=== PATIENT | female | born 1995 | race Caucasian/White ===

== ENCOUNTER 2022-03-05 12:14 | Emergency (ER) | payer OTHER, SELFPAY ==
--- NOTE | 2022-03-05 12:16 | ED.URI ---
HPI - URI/Sore Throat General Chief Complaint: Upper Respiratory Infection Stated Complaint: Ear and sinus infection Time Seen by Provider: 03/05/22 12:16 Source: patient Mode of arrival: ambulatory Limitations: no limitations History of Present Illness HPI Narrative: Rocio is a 26-year-old female patient presenting to the clinic today with complaints of possible sinus infection/ear pain times 1 week. She reports that she has had sinus pressure, sore throat, and right ear pain. She denies any known exposure to anybody with strep, COVID, or flu. She reports that she has had a fever highest of 102. Is having green/yellowish nasal discharge/sinus pressure MD elicited complaint: fever, sore throat, rhinorrhea, nasal congestion, sinus pain and other (Ear pain) Related Data Allergies Allergy/AdvReac Type Severity Reaction Status Date / Time latex Allergy Mild Rash Verified 03/05/22 12:31 ciprofloxacin Allergy Unknown Unknown Verified 03/05/22 12:30 Review of Systems Review of Systems: Pertinent positives per HPI. Patient denies any fever, chills, rash, headache, visual changes, dizziness, cough, shortness of breath, chest pain, palpitations, nausea, vomiting, diarrhea, constipation, abdominal pain, or any urinary issues. PMFSH Comments At the time of my signature, I reviewed and agree with the nursing past medical, surgical, social, and family history. There is no relevant family history pertinent to the patient complaint. Exam Narrative: General: Well-developed, well nourished, in no apparent distress Head: Normocephalic, atraumatic Eyes: Pupils equally round and reactive to light bilaterally, EOM intact, sclera and conjunctive clear, no discharge, lids normal Ears: Left TMs intact and clear, right TM red, intact, and bulging. Ear canals clear, no drainage, grossly hearing normal. Nose: Nares patent, yellow discharge, moderate inflammation with white striate, sinus tenderness over the maxillary sinuses Mouth: Oral pharynx without lesions or masses, good dentition, MMM. Oropharynx red Neck: Supple, trachea midline, no enlargement of anterior or posterior cervical nodes, no thyroid masses or goiter palpable. Cardio: Regular rate and rhythm, s1 and s2 normal, no murmur appreciated. Resp: Clear to auscultation bilaterally, no rhonchi, rales, wheezing or rubs Course Course Emergency Course: Portions of this record may have been created with voice recognition software. Level of Care: Express Care Visit Vital Signs Vital signs: Vital signs reviewed MDM - URI/Sore Throat MDM Narrative Medical decision making narrative: At the time of visit patient is resting comfortably on the exam table. She reports she has sinus pressure, green nasal drainage, sore throat, and right ear pain. The time of assessment patient appears to have a right sided ear infection and sinusitis. I will go ahead and treat her using a prescription for Augmentin. Supportive measures were discussed with the patient and she voiced understanding of discharge instructions. Differential Diagnosis Differential diagnosis: Likely upper respiratory infection, otitis media, sinusitis, viral infection, bronchitis, influenza, pharyngitis and other ( COVID) Discharge Plan Discharge Clinical Impression: Acute right otitis media Sinusitis Qualifiers: Sinusitis location: maxillary Chronicity: acute Recurrence: non-recurrent Qualified Code(s): J01.00 - Acute maxillary sinusitis, unspecified Patient Disposition: Home, Self-Care Condition: Stable Instructions: Antibiotic Form, Sinusitis (ED), Ear Infection (ED) Additional Instructions: Take prescription medications only as prescribed-Augmentin as prescribed Increase fluids and stay well hydrated Tylenol/motrin for pain/fever Flonase and OTC antihistamines as directed Vicks vapor rub to open sinuses Sinus rinses for congestion Cepacol spray, cough drops, throat lozenges, warm tea with stefanie
[2022-03-05 12:27] VITALS: BP 115/60; PULSE 89; RESP 16; TEMP 37.2; O2SAT 99
== END 2022-03-05 12:35 | disposition home or self-care (01) ==
LOC: EXPBETH 12:19
PROVIDERS: Emergency Provider Nurse Practitioner Family
DX: H66.91 Otitis media, unspecified, right ear (principal); J01.00 Acute maxillary sinusitis, unspecified; R11.15 Cyclical vomiting syndrome unrelated to migraine
CPT/HCPCS: 99213; G0463

== ENCOUNTER 2022-06-29 11:44 | Emergency (ER) | payer OTHER, SELFPAY ==
--- NOTE | 2022-06-29 11:48 | ED.URI ---
HPI - URI/Sore Throat General Chief Complaint: Upper Respiratory Infection Stated Complaint: ears coughing tightness in chest aches Time Seen by Provider: 06/29/22 11:48 Source: patient and RN notes reviewed History of Present Illness HPI Narrative: Patient is a 27-year-old female who presents the urgent care with complaints of bilateral ear pain, sneezing, cough, runny nose, fever. Patient states her symptoms have been ongoing for approximately 10 days. States her last temperature was 99 Fahrenheit. Patient states she is taken NyQuil for the last 2 nights. Denies any shortness of breath. Denies of any ill exposures. No other acute complaints. No acute distress noted. Patient aware of the plan of care. Some parts of this dictation were generated by voice recognition software and may contain typographical and/or grammatical inaccuracies. Related Data Allergies Allergy/AdvReac Type Severity Reaction Status Date / Time latex Allergy Mild Rash Verified 06/29/22 11:55 ciprofloxacin Allergy Unknown Unknown Verified 06/29/22 11:55 Review of Systems Review of Systems: CONSTITUTIONAL: Reports of chills and sweats EYES: Denies visual changes, redness, or discharge. ENT: Reports of rhinorrhea, intermittent congestion, postnasal drainage and bilateral otalgia CARDIOVASCULAR: Denies chest pain, palpitations, or edema. RESPIRATORY: Reports a mild cough without dyspnea GASTROINTESTINAL: Denies abdominal pain, nausea, vomiting, or diarrhea. GENITOURINARY: Denies dysuria or hematuria. SKIN: Denies rash or itching. MUSCULOSKELETAL: Denies back pain, joint pain, or myalgia. NEUROLOGIC: Denies headache, numbness, or weakness. All other systems reviewed are negative, except as documented in HPI. PMFSH Comments At the time of my signature, I reviewed and agree with the nursing past medical, surgical, social, and family history. There is no relevant family history pertinent to the patient complaint. Exam Narrative: GENERAL: This is a well-nourished, well-developed patient. Disheveled/poor hygiene HEAD: normocephalic, atraumatic. EYES: PERRL. Sclera clear/white. Vision is grossly intact. EARS: External ears normal, auditory canals clear and without drainage, TMs normal without perforation. Hearing grossly intact. NOSE: External nose normal with no obvious nasal discharge, nares without redness, clear rhinorrhea. THROAT: Mucous membranes moist, posterior pharynx clear. Moderate postnasal drainage NECK: Neck supple, non-tender without lymphadenopathy CARDIOVASCULAR: Regular rate and rhythm without murmurs, gallops, or rubs. RESPIRATORY: Clear to auscultation. Breath sounds equal bilaterally. No wheezes, rales, or rhonchi. SKIN: warm, intact with no suspicious lesions or rash, good texture and turgor. NEURO: awake, alert, and oriented to person, place and time. There were no obvious focal neurologic abnormalities. EXTREMITIES: No clubbing, cyanosis, or edema. Course Course Level of Care: Express Care Visit Vital Signs Vital signs: Vital Signs Temperature 98.9 F 06/29/22 11:50 Pulse Rate 99 06/29/22 11:50 Respiratory Rate 16 06/29/22 11:50 Blood Pressure 111/68 06/29/22 11:50 Pulse Oximetry 100 06/29/22 11:50 Oxygen Delivery Room Air 06/29/22 11:50 Temperature 98.9 F 06/29/22 11:50 Pulse Rate 99 06/29/22 11:50 Respiratory Rate 16 06/29/22 11:50 Blood Pressure 111/68 06/29/22 11:50 Pulse Oximetry 100 06/29/22 11:50 Oxygen Delivery Room Air 06/29/22 11:50 Reviewed MDM - URI/Sore Throat MDM Narrative Medical decision making narrative: Advised patient to take a daily antihistamine such as Zyrtec or Claritin and Benadryl prior to bedtime. Do not sleep with the windows open or a fan. Use a humidifier at night. Use Tylenol/ibuprofen as needed. Complete the oral steroid regimen as prescribed. Be sure to eat and drink with your medication. Follow-up with your PCP within 2 to 5 days or for worseni
[2022-06-29 11:50] VITALS: BP 111/68; PULSE 99; RESP 16; TEMP 37.2; O2SAT 100
== END 2022-06-29 12:19 | disposition home or self-care (01) ==
PROVIDERS: Emergency Provider Nurse Practitioner Family
DX: J06.9 Acute upper respiratory infection, unspecified (principal)
CPT/HCPCS: 99213; G0463

== ENCOUNTER 2025-05-03 17:32 | Emergency (ER) | payer OTHER, SELFPAY ==
[2025-05-03 17:40] VITALS: BP 123/101; PULSE 98; RESP 16; TEMP 36.6; O2SAT 100
--- NOTE | 2025-05-03 17:40 | ED.SKABFB ---
HPI - Skin/Abscess/Foreign Bdy General Chief complaint: Skin/Abscess/Foreign Body Stated complaint: Rash on left finger patient presents to Express Care brought by mother with complaints of worsening rash to right ring finger that she noticed about 6 days ago. Patient does report having history of eczema but has never had 1 that looks like this. Patient reports applying alcohol, tea tree, and honey noted that after the tea tree and honey this did get larger. Patient also notes a circular area of redness and bumps to right side of chest that began about 4 days ago. Patient has applied similar things to this area as well without changes. Noted she has also soaked this finger in scalding water. denies fever, chills, body aches, tingling, or drainage from the areas. Related Data Home Medications ?Medication ?Instructions ?Recorded ?Confirmed ?Last Taken ?Type medical marjuania 05/03/25 Unknown History Allergies Allergy/AdvReac Type Severity Reaction Status Date / Time latex Allergy Mild Rash Verified 05/03/25 17:47 ciprofloxacin Allergy Unknown Unknown Verified 05/03/25 17:47 Review of Systems Constitutional: Constitutional: Reports as per HPI, Denies chills, Denies fatigue, Denies fever(s) and Denies weakness Cardiovascular: Cardiovascular: Reports no additional cardiovascular complaints Respiratory: Respiratory: Reports no additional respiratory complaints Gastrointestinal: Gastrointestinal: Reports no additional gastrointestinal complaints Genitourinary: Genitourinary: Reports no additional female genitourinary complaints Musculoskeletal: Musculoskeletal: Reports as per HPI, Reports arthralgias and Reports joint swelling Integumentary/Breasts: Skin/Breast: Reports as per HPI, Reports erythema and Reports rash Neurologic: Reports as per HPI, Denies numbness and Denies weakness Psychiatric: Psychiatric: Reports no additional psychiatric complaints Endocrine: Endocrine: Reports no additional endocrine complaints Hematologic/Lymphatic: Hematologic/Lymphatic: Reports no additional hematologic/lymphatic complaints Allergic/Immunologic: Allergic/Immunologic: Reports no additional allergic/immunologic complaints Exam Const: General: healthy appearing and no acute distress Nutritional Appearance: well nourished Orientation/consciousness: patient oriented x3 Limitations: no limitations Chest: Chest palpation & inspection: abnormal inspection of the chest and no tenderness Other: Minimal circular area of erythema with small papules noted area is 2 cm in diameter. Resp: Effort & Inspection: normal respiratory effort Auscultation: clear to auscultation bilaterally Cardio: Rate: regular rate Rhythm: regular rhythm Skin: Wounds: wounds noted Other: Circular area of erythema with blistered edges and center scabbed area. Area is 4-5 cm in diameter. Mild edema and warmth noted. No active drainage or crusting Neuro: General: patient oriented x3 and moves all extremities Speech: normal speech Gait exam (Neuro): Normal gait present Psych: Mental Status: mental status grossly normal Affect: normal affect Attitude: cooperative Course Course Level of Care: Express Care Visit MDM - Skin/Abscess/Foreign Bdy MDM Narrative Medical decision making narrative: Given presentation of rash likely a dyshidrotic eczema with a secondary bacterial infection. Will place patient on antibiotics and topical steroids. Educated patient on had a clean wounds Discharge instructions reviewed with patient, as well as provided in writing per nursing staff. The instructions also include specific and strict return/GO TO THE ER as well as f/u information. All questions have been answered, and the patient deny any further questions with discharge and discharge plan. Differential Diagnosis Differential diagnosis: Likely urticaria, allergic reaction to drug, cellulitis, insect bites, impetigo and contact dermatitis Medical Records Attestation: I reviewed the patient's medical records. Discharge Plan Discharge Clinical Impression: Cellulitis of finger of right hand, Dyshidrotic eczema Patient Disposition: Home Condition: Stable Instructions: Antibiotic Form, Cellulitis (ED), Dyshidrotic Eczema (ED) Additional Instructions: Clean with soap and water only; Avoid using alcohol and peroxide. Elevate the affected area if possible Alternate Tylenol/ibuprofen for as needed for pain Acetaminophen(Tylenol) 650-1000mg every 4-6hours with max of 4000mg/day. Nonsteroidal anti-inflammatory agent (NSAIDs-ibuprofen): 400mg every 4-6hours with max 2400mg/day Take antibiotic until it's gone. Please schedule a follow up visit with your personal physician for further evaluation and treatment within 3-5days OR if your symptoms persist, change or worsen significantly before you can contact your personal physician then please, without delay, go to the emergency department for further evaluation. Patient Language: Mongolian Prescriptions: New cephalexin 500 mg capsule 500 mg PO Q8H Qty: 21 0RF triamcinolone acetonide 0.1 % cream 1 applic topical TID PRN (Reason: rash) Qty: 80 0RF No Action medical marjuania Follow-up/Referrals: PHYSICIAN,HUMAN RESOURCES REPRESENTATIVE [Primary Care Provider] - Time of Disposition: 17:55
== END 2025-05-03 17:57 | disposition home or self-care (01) ==
PROVIDERS: Emergency Provider Nurse Practitioner Family
DX: L03.011 Cellulitis of right finger (principal); L30.1 Dyshidrosis [pompholyx]
CPT/HCPCS: 99213; G0463